=== PATIENT | male | born 2000 | race Caucasian/White ===

== ENCOUNTER 2022-01-17 11:31 | Emergency (ER) | payer OTHER, SELFPAY ==
[2022-01-17 11:36] VITALS: BP 143/100; PULSE 108; RESP 18; O2SAT 100; BMI 19.8
--- NOTE | 2022-01-17 11:43 | CRLHL7_ITS ---
For Patients: As a result of the Century Cures Act, medical imaging exams and procedure reports are released immediately into your electronic medical record. You may view this report before your referring provider. If you have questions, please contact your health care provider. INDICATION: Concussion TECHNIQUE: CT head without contrast. COMPARISON: None. FINDINGS: CSF spaces: Within normal limits for age. Brain parenchyma and extra-axial spaces: The kiran-white differentiation is normal. No sign of mass, hemorrhage, or midline shift. No extra-axial fluid collection. Skull base and calvarium: Trace layering fluid within the bilateral maxillary sinuses. The visualized orbits are grossly unremarkable. No skull fractures. IMPRESSION: No evidence of acute intracranial abnormality on this noncontrast CT head. There is trace layering fluid in the bilateral maxillary sinuses. Recommend clinical correlation for signs and symptoms of sinusitis. Please note that all CT scans at this facility use dose modulation, iterative reconstruction, and/or weight-based dosing when appropriate to reduce radiation dose to as low as reasonably achievable. Dictated by Dre Jacinto MD @ 01/17/2022 12:28:24 PM (Electronically Signed)
--- NOTE | 2022-01-17 11:44 | ED.GENADULT ---
HPI - General Adult General Time Seen by Provider: 11:45 Date Seen: 01/17/22 Chief complaint: Headache/Migraine Stated complaint: possible concussion Time Seen by Provider: 01/17/22 11:31 Source: patient Mode of arrival: ambulatory Limitations: no limitations History of Present Illness HPI narrative: Patient is a pleasant 21 year white male from [place] who is attending [employer], who is here with his sister. He was walking yesterday and came up suddenly upon a large branch on the top of his head and hit it quite hard. He reports that subsequent that he vomited while trying to eat, and he also feels nauseated, he still has a bit of a headache and feels nauseated. Interestingly Juan Carlos has had 2 head injuries this summer 1 in October 1 in [place] was [place] He stepped off a elevated bunk and landed on the floor and hit his head he thinks he briefly lost consciousness there. The 2nd injury was in December and he stepped in a hole and hit his head he did not lose consciousness at that episode. He thought the 1st episode was worse, and now he hit his head again yesterday common continues to be symptomatic. He denies any focal neurologic weakness or findings, denies neck pain, his sister is here and she reports that he is talking ?slower? than normal, and he was a little bit confused this morning. He has talked to his family who agree with assessment. Related Data Allergies Allergy/AdvReac Type Severity Reaction Status Date / Time No Known Drug Allergies Allergy Verified 01/17/22 11:47 Review of Systems Status of ROS: Reports: 10 or more systems reviewed and unremarkable except as noted in History and below [facility] Social History Smoking Status: Never smoker Do you use any of these nicotine containing products: Vaping Products Second hand tobacco smoke exposure: No How often do you have a drink containing alcohol: never How often do you have six or more drinks on one occasion: Never AUDIT-C Alcohol total score: 0 Non-prescribed substance use: denies use service: No Exam Narrative: Exam Narrative: Objective: The patient is in no apparent distress, conversant HEENT is otherwise unremarkable neck is supple Neurologic is grossly nonfocal HEENT shows pupils are actually Dr. Movements intact, no facial asymmetry, there is no neurologic complaints or abnormalities noted, specifically no neck pain as mention. No palpable step-off in his scalp Good peripheral perfusion Skin is warm and dry Const: Vital Signs, click to edit/add: Vital Signs - 24 hr 01/17/22 11:36 01/17/22 12:50 Pulse Rate [Pulse Oximeter] 108 H 75 Respiratory Rate 18 16 Blood Pressure [Ri ght Upper Arm] 143/100 H 141/86 H Pulse Oximetry 100 100 Oxygen Delivery Me thod Room Air Room Air Course Vital Signs Vital signs: Initial Vital Signs Temperature Source Temporal Artery Scan 01/17/22 11:36 Pulse Rate 108 H 01/17/22 11:36 Pulse Rhythm 01/17/22 11:36 Respiratory Rate 18 01/17/22 11:36 Blood Pressure 143/100 H 01/17/22 11:36 Blood Pressure Mean 114 01/17/22 11:36 Pulse Oximetry 100 01/17/22 11:36 Oxygen Delivery Method 01/17/22 11:36 Vital Signs Pulse Rate 108 H 01/17/22 11:36 Respiratory Rate 18 01/17/22 11:36 Blood Pressure 143/100 H 01/17/22 11:36 Pulse Oximetry 100 01/17/22 11:36 Oxygen Delivery Method 01/17/22 11:36 Pulse Rate 75 01/17/22 12:50 Respiratory Rate 16 01/17/22 12:50 Blood Pressure 141/86 H 01/17/22 12:50 Pulse Oximetry 100 01/17/22 12:50 Oxygen Delivery Method 01/17/22 12:50 Medical Decision Making [facility] Narrative Medical decision making narrative: The patient has had a close head injury yesterday, continues to be symptomatic with headache and some slight nausea, with some slowed speech. Given his history of 2 prior head injuries this summer I would recommend we proceed with a CT scan, and he and his sister were in agreement with this. They agree to notify their family as well of plans. If his CT is negative then light activity recommended, consultation with his family, and could consider follow-up with primary care, and even consider a TBI clinic if not improving given his repetitive injury. Tylenol as needed. Will review the CT is a returns Discharge Plan Discharge Clinical Impression: CHI (closed head injury) Patient Disposition: Home w/ Parent or Adult Condition: Stable Additional Instructions: Rest, light activity, fluids, no exercise, avoid repetitive head injury or any contact activities, follow up with primary care in the next 2-3 days. Consider consultation further as needed. Follow Up appt at [facility] with Dr. Arrington on 01/18/22 at 1pm with arrival time of 12:45pm. Discharge Diet: Regular Stand Alone Forms: [facility] Info Instructions
[2022-01-17 12:50] VITALS: BP 141/86; PULSE 75; RESP 16; O2SAT 100
== END 2022-01-17 12:55 | disposition home or self-care (01) ==
LOC: ED 12:40
PROVIDERS: Emergency Provider Family Medicine
DX: R51.9 Headache, unspecified (principal); S09.90XA Unspecified injury of head, initial encounter; W22.8XXA Striking against or struck by other objects, initial encounter
CPT/HCPCS: 70450; 99284

== ENCOUNTER 2022-06-10 16:01 | Emergency (ER) | payer OTHER, SELFPAY ==
[2022-06-10 16:13] VITALS: BP 145/99; PULSE 121; RESP 16; TEMP 36.8; O2SAT 100; BMI 19.4
--- NOTE | 2022-06-10 16:51 | ED.HEATRA ---
HPI - Head Injury General Chief complaint: Head Injury/Pain Stated complaint: Head Injury - Hit on Bathtub Time Seen by Provider: 06/10/22 16:33 History of Present Illness HPI Narrative: 21-year-old young man presenting to the emergency department after slipping in the shower striking his head on the edge of the tub. He has hit the left side of his head. Notes a history of chronic migraines and neck pain generally. Takes gabapentin as suppressive therapy. He does have a good deal of pain in the area of impact. Later questioning is reporting a little nausea as well. Does have a history of head injuries and concussions. Says this does not feel like that. There was no loss of consciousness. No visual disturbance. No discoordination other than the clumsiness he says that might have contributed to this. He has cut his head. Denies connective tissue disorder. Related Data Home Medications Medication Instructions Recorded Confirmed clonazepam 0.5 mg tablet mg 06/10/22 dextroamphetamine-amphetamine ER PO 06/10/22 20 mg 24hr capsule,extend release duloxetine 30 mg capsule,delayed mg PO 06/10/22 release duloxetine 60 mg capsule,delayed mg PO 06/10/22 release eszopiclone 1 mg tablet mg 06/10/22 gabapentin 600 mg tablet mg 06/10/22 lamotrigine 200 mg tablet mg 06/10/22 zaleplon 10 mg capsule mg 06/10/22 Allergies Allergy/AdvReac Type Severity Reaction Status Date / Time No Known Drug Allergies Allergy Verified 01/17/22 11:47 Review of Systems Status of ROS: Reports: 6 or more systems reviewed and unremarkable except as noted in History and below [facility] Social History Smoking Status: Never smoker Do you use any of these nicotine containing products: Vaping Products Second hand tobacco smoke exposure: No How often do you have a drink containing alcohol: never How often do you have six or more drinks on one occasion: Never AUDIT-C Alcohol total score: 0 Non-prescribed substance use: denies use service: No Exam Narrative: Exam Narrative: Pleasant. Easily conversant. NAD. Speaking fluidly. Moving smoothly. Is icing the left side of his head. There is some dried blood in the hairline of the left scalp. Just at the superior and posterior aspect of the left adventism there is a 3/4 inch gapping laceration that bleeds easily when manipulated. Full dermal. Tender to palpation here but no deformity otherwise palpated. No fluid in external ear canals apparent. No Patel sign. He is moving his neck without apparent difficulty; neck appears to be supple. No midline tenderness. Cranial nerves 2-12 look to be intact. Pupils are brisk and equal. There is no nystagmus. Hesitates a little bit with serial sevens but generally accurate. Mentating clearly. Const: Vital Signs, click to edit/add: Vital Signs - 24 hr 06/10/22 16:13 Temperature 98.2 F Pulse Rate [Left P ulse Oximeter] 121 H Respiratory Rate 16 Blood Pressure [Le ft Upper Arm] 145/99 H Pulse Oximetry 100 Documenting provider has reviewed patient's vital signs: yes Course Vital Signs Vital signs: Initial Vital Signs Temperature 98.2 F 06/10/22 16:13 Temperature Source Temporal Artery Scan 06/10/22 16:13 Pulse Rate 121 H 06/10/22 16:13 Pulse Rhythm 06/10/22 16:13 Pulse Strength 3+ Normal 06/10/22 16:13 Respiratory Rate 16 06/10/22 16:13 Blood Pressure 145/99 H 06/10/22 16:13 Blood Pressure Mean 114 06/10/22 16:13 Blood Pressure Position Sitting 06/10/22 16:13 Pulse Oximetry 100 06/10/22 16:13 Vital Signs Temperature 98.2 F 06/10/22 16:13 Pulse Rate 121 H 06/10/22 16:13 Respiratory Rate 16 06/10/22 16:13 Blood Pressure 145/99 H 06/10/22 16:13 Pulse Oximetry 100 06/10/22 16:13 Temperature 98.2 F 06/10/22 16:13 Pulse Rate 121 H 06/10/22 16:13 Respiratory Rate 16 06/10/22 16:13 Blood Pressure 145/99 H 06/10/22 16:13 Pulse Oximetry 100 06/10/22 16:13 MDM - Head Injury MDM Narrative Medical decision making narrative: Appears to be interested in a brief ER visit. I discussed repair including placement of delmar with or without anesthesia. I think the benefit of anesthesia would be longer-term anesthetic at least for maybe a couple of hours. Otherwise I think discomfort of the injection and placement of delmar would be a wash. We also discussed suturing. He opts for straight delmar. I cleansed the area with Shur-Clens type solution. Stapled quickly with good wound approximation and control of bleeding with 3 delmar. He tolerated this quite well. Wincing in pain later, Mr. Cazares did make mention of pain in the area as well as right posterior parietal/occipital head. We discussed treatment for headache here in the ER or other concerns that might lead to imaging. It's my understanding that after consultation with his father, he decided to leave and treat at home. Discharge Plan Discharge Clinical Impression: Closed head injury, Headache, Laceration of scalp Patient Disposition: Home w/ Parent or Adult Condition: Improved Additional Instructions: Can clean up initially as needed. [place] out in?about 7 days. Ok to get wet but avoid soaking while sutures are in. Please call clinic for staple removal [phone] While I would discuss this certainly further with your father and it sounds like you are familiar unfortunately with concussions, signs and symptoms of a concussion can be headache and nausea on exertion which would also be an indication to back off that level of activity and reassess in 1 week.? Other signs might be a smoldering headache or nausea for an extended period of time, mood lability, sleep disturbances, difficulty with concentration, persistent light sensitivity. If you are having these symptoms for a week I would be re-evaluated for further recommendations. Return otherwise for worsening and severe headache, repeated vomiting, new and focal weakness, visual changes, discoordination, unusual somnolence. Prescriptions: No Action gabapentin 600 mg tablet lamotrigine 200 mg tablet Label Comments: TAKE 1 TABLET BY MOUTH EVERY DAY clonazepam 0.5 mg tablet dextroamphetamine-amphetamine 20 mg capsule,extended release 24hr PO zaleplon 10 mg capsule duloxetine 30 mg capsule,delayed release(DR/EC) PO Label Comments: TAKE 1 CAPSULE BY MOUTH TWICE DAILY duloxetine 60 mg capsule,delayed release(DR/EC) PO Label Comments: TAKE 1 CAPSULE BY MOUTH EVERY DAY eszopiclone 1 mg tablet Follow Up/Referrals: Provider,Not a Local [Primary Care Provider] - Stand Alone Forms: [facility] Info Instructions
== END 2022-06-10 17:24 | disposition home or self-care (01) ==
PROVIDERS: Emergency Provider Family Medicine
DX: S01.01XA Laceration without foreign body of scalp, initial encounter (principal); W18.2XXA Fall in (into) shower or empty bathtub, initial encounter
CPT/HCPCS: 12001; 99283